=== PATIENT | male | born 1970 | race Caucasian/White ===

== ENCOUNTER → 2016-11-30 | Outpatient (CLI) | payer OTHER, BC | LOC: ULTRA 11:05 | DX: M79.605 Pain in left leg (principal); M79.89 Other specified soft tissue disorders ==

== ENCOUNTER → 2017-03-05 | Outpatient (CLI) | payer OTHER, BC | LOC: RAD 14:22 | DX: J18.9 Pneumonia, unspecified organism (principal) ==

== ENCOUNTER → 2017-05-23 | Outpatient (CLI) | payer OTHER, BC | LOC: RAD 11:18 | DX: R05 Cough (principal); R91.8 Other nonspecific abnormal finding of lung field; J18.9 Pneumonia, unspecified organism ==

== ENCOUNTER 2019-01-28 20:58 | Inpatient (IN) | payer OTHER, BC ==
[~2019-01-28] VITALS: Ht 170.2 cm; Wt 68.0 kg
[2019-01-28 19:30] VITALS: BP 126/82
[2019-01-28] MEDS ORDERED: HYDROXYZINE HCL10 M1 PO (23:17)
[2019-01-28] MEDS ORDERED: TRAZODONE HCL100 MG PO (23:18)
[2019-01-28] MEDS ORDERED: RISPERIDONE 1 MG1 MG PO (23:20)
[2019-01-28] MEDS ORDERED: ZANAFLEX4 MG PO (23:21)
[2019-01-28] MEDS ORDERED: FEXOFENADINE H180 MG PO (23:22)
[2019-01-28] MEDS ORDERED: DIVALPROEX SOD500 M1 PO ×2 (23:23→23:26)
[2019-01-28] MEDS ORDERED: ALLOPURINOL 10100 M1 PO (23:26)
[2019-01-28] MEDS ORDERED: TRIMETHOPRIM /P10 M1 OPHTHALMIC (23:29)
--- NOTE | 2019-01-29 00:34 | NUR ---
Pt admitted from 's office approx 1914,accompanied by mom/dad via WC.Parents reported he was doing fine when they last had him at their house Sunday evening but apparently pt was unable to get OOB Sunday morning d/t back pain. Pt is A/OX3-4,autistic and will occasionally clap alone and grind teeth. VSS.C/o pain ro right hip with movement. 's called with admission orders and implemented. IV started with 2 attempts on LFA. Pt is continent of B&B per dad. Fall precautions implemeted. Resting quietly at this time,will continue to monitor pt. Takes meds whole in applesauce/pudding and is a pureed diet.
[2019-01-29 04:13] VITALS: BP 133/92
[2019-01-29 07:19] VITALS: BP 114/74
--- NOTE | 2019-01-29 12:31 | NUR ---
Assumed care of pt at 0700. Pt has Down Syndrome. Follows commands. C/o pain in right hip. Pain medication administered. Family at bedside. Per verbal order, it is ok to administer the pt's meds from [facility] this am. Fall precautions in place. Will continue to monitor.
--- NOTE | 2019-01-29 15:24 | NUR ---
Case opened to follow for dc planning. Tool And Die Machinist visited with the pt and his mother/legal guardian at bedside. The pt has a hx of downs and autisum. He has lived at [facility] for 20 years. He spends the weekends with his parents. The pt is able to verbalize in one -two word responsives but is distracted with pain. His mother provided his history and plof information. She reports that the detention provides his meals, manages his medications and structured supervision. He requires pureed diet d/t aspiration risk and a special cup for liquids. They provide some assist for toileting hygiene. His Mom believes he had an unwitnessed fall resulting in the fractures. He is normally able to transfer and gait independently without an assistive device. He does need sba with stairs due to joint pain from arthritis. Therapy evals PT/OT/ST in progress. Pt will likely need rehab for pain control, functional gait, transfers, adl's and safety. He may need to use an assistive device. Pt's mother is agreeable to [facility] or [facility] pending the are team recommendations. Referral called to [facility] and they will come visit later today. [facility] does have beds available and contract with his ins plan. They will eval. [facility] does not have any beds til Sunday/Sunday. SNF disussed, including [facility] and [facility] the pt's parents live in [place]. Pt's eyal is concerned about his care needs being met and negative expriences with other family in the past. Cm role introduced. Will await response from [facility].
[2019-01-29 16:26] VITALS: BP 112/57
[2019-01-29 19:24] VITALS: BP 117/90
[2019-01-30] VITALS (7 sets, daily range): BP systolic 117–130; BP diastolic 76–90
--- NOTE | 2019-01-30 03:04 | NUR ---
Assumed pt care at 1900. Pt is A/OX3,able to make needs known;dad in room with the pt. VSS.Continent of B&B,voiding per urinal. Medicated per EMAR with relief reported. Fall precautions in place,will continue to monitor pt.
--- NOTE | 2019-01-30 10:42 | NUR ---
dp sent referral to [facility], Germaine at [facility] received and said Lynn has already been out to do evaluation, they will submit for authorization.
--- NOTE | 2019-01-30 13:35 | NUR ---
dp sent hh referral to [facility]) ready for dc today. fax [phone]
--- NOTE | 2019-01-30 15:28 | NUR ---
CARE TEAM INDICATED THAT PT IS MEDICALLY STABLE TO DC HOME THIS DAY. PT'S FAMILY ARE TO TAKE PT TO THEIR HOME INSTEAD OF HIS CARE HOME OR [facility] THEY FEEL HE WILL DO BETTER IN FAMILIAR SETTING. CM ORDERED FWW THROUGH [facility]. CM SENT REFERRAL TO [facility] AND THEY INDICATED THEY CAN'T ACCEPT PT. CM HAD REFERRAL SENT TO [facility]. AWAITING RESPONSE. PT IT TO DC TO HIS PARENTS HOME THIS DAY. NO OTHER CM INTERVETNION INDICATED. CASE CLOSED.
--- NOTE | 2019-01-30 19:44 | NUR ---
PATIENT WAS SHAKING AT 1530 VS = 130/90 MANUAL HR = 80 16 RESP T= 97.8 O2 SAT 88- 91%. CALLED DR SALAZAR FOR CHEST X-RAY AT 19:48 CALLED CHEST X- RAY RESULTS TO DR SALAZAR RECIEVED ORDERS : ROCHEPIN 1 GM IV XS1 AND ZITHROMAX [address] SALAZAR WILL SEE PATIENT IN AM. PT IS RESTING COMFORTABLY.
--- NOTE | 2019-01-31 02:13 | NUR ---
ASSESSMENT COMPLETED.PT HAD TEMP OF 100.6,TYLENOL ADMINISTERED,EFFECTIVE.PT HAD IV PUT ON HIS L HAND,IV ABX ADMINISTERED ORDERED.DAD AT BEDSIDE.PT RESTING ON HIS BED AT THIS TIME.FALL PRECAUTIONS IN PLACE,CALL LIGHT WITHIN REACH.
[2019-01-31 05:10] VITALS: BP 110/65
[2019-01-31] MEDS ORDERED: AZITHROMYCIN 2250 MG PO (07:53)
[2019-01-31] MEDS ORDERED: CEFDINIR300 MG PO (07:53)
[2019-01-31 08:00] VITALS: BP 99/62
--- NOTE | 2019-01-31 10:16 | NUR ---
DISCHARGE PLANNING. PATIENT DISCHARGING TO HOME WITH MOTHER, HOME HEALTH SERVICES RECOMMENDED AT DISCHARGE. HOME HEALTH REFERRAL, DISCHARGE ORDERS/HOME HEALTH ORDERS AND DISCHARGE SUMMARY FAXED TO [facility]TAKE LIAISON. CALL RECEIVED FROM [facility], ACCEPTING OF PATIENT AT DISCHARGE. START OF SERVICE DATE SUNDAY. UNIT SW AWARE.
[2019-01-31 13:43] VITALS: BP 117/79
--- NOTE | 2019-01-31 13:54 | NUR ---
PT DIDN'T DC HOME YESTERDAY EVENING PHYSICAIN HELD DC DUE TO PT ASPITATING. ORDERS HAD BEEN SENT TO [facility] AND THEY HAVE CONTACTED PT'S MOTHER TO INITIATE VISITS. PT'S WALKER WAS DELIVERD BY [facility]. NO OTHER CM INTERVENTION INDICATED. PT IS TO DC HOME WITH FAMILY THIS DAY. CM TO FAX DC PAPERWORK TO PT'S ASSISTED WELL. NO OTHER CM INTERVENTION INDICATED. CASE CLOSED.
[2019-01-31 14:09] VITALS: BP 117/79
== END 2019-01-31 14:50 | disposition home health service (06) | DRG 551 ==
LOC: 4E 20:58 → ENTRNSPT 01-31 14:40 → EDTRNSPTSTS 01-31 14:44 → 4E 01-31 14:50
PROVIDERS: ADMIT Family Medicine
DX: S32.10XA Unspecified fracture of sacrum, initial encounter for closed fracture (principal); J69.0 Pneumonitis due to inhalation of food and vomit; S32.059A Unspecified fracture of fifth lumbar vertebra, initial encounter for closed fracture; S32.502A Unspecified fracture of left pubis, initial encounter for closed fracture; S32.501A Unspecified fracture of right pubis, initial encounter for closed fracture; M54.9 Dorsalgia, unspecified; Z88.8 Allergy status to other drugs, medicaments and biological substances; Z93.0 Tracheostomy status; Q90.9 Down syndrome, unspecified; W18.39XA Other fall on same level, initial encounter; Y93.89 Activity, other specified; Y92.89 Other specified places as the place of occurrence of the external cause; Y99.8 Other external cause status
CPT/HCPCS: 10783

== ENCOUNTER → 2019-01-28 | Outpatient (CLI) | payer OTHER, BC ==
[~2019-01-28] MED LIST: ALLOPURINOL 10100 M1 PO; AZITHROMYCIN 2250 MG PO; CEFDINIR300 MG PO; DIVALPROEX SOD500 M1 PO; FEXOFENADINE H180 MG PO; HYDROXYZINE HCL10 M1 PO; RISPERIDONE 1 MG1 MG PO; TRAZODONE HCL100 MG PO; TRIMETHOPRIM /P10 M1 OPHTHALMIC; ZANAFLEX4 MG PO
== END ==
LOC: CAT 11:44 → RAD 11:44
DX: S32.591A Other specified fracture of right pubis, initial encounter for closed fracture (principal); S73.001A Unspecified subluxation of right hip, initial encounter; M51.36 Other intervertebral disc degeneration, lumbar region; M46.06 Spinal enthesopathy, lumbar region; Q65.89 Other specified congenital deformities of hip; X58.XXXA Exposure to other specified factors, initial encounter; Y93.89 Activity, other specified; Y92.89 Other specified places as the place of occurrence of the external cause; Y99.8 Other external cause status

== ENCOUNTER → 2019-03-07 | Outpatient (CLI) | payer OTHER, BC | LOC: NUC 08:46 | DX: M81.0 Age-related osteoporosis without current pathological fracture (principal); S32.82XD Multiple fractures of pelvis without disruption of pelvic ring, subsequent encounter for fracture with routine healing; X58.XXXD Exposure to other specified factors, subsequent encounter ==

== ENCOUNTER → 2019-07-31 | Outpatient (CLI) | payer OTHER, BC | LOC: CAT 10:42 | DX: R91.1 Solitary pulmonary nodule (principal); J18.1 Lobar pneumonia, unspecified organism; J84.10 Pulmonary fibrosis, unspecified; M43.8X4 Other specified deforming dorsopathies, thoracic region; M41.84 Other forms of scoliosis, thoracic region; K46.9 Unspecified abdominal hernia without obstruction or gangrene; K76.89 Other specified diseases of liver; D71 Functional disorders of polymorphonuclear neutrophils ==

== ENCOUNTER 2019-09-18 21:20 | Inpatient (IN) | payer OTHER, BC ==
[~2019-09-18] VITALS: Ht 170.2 cm; Wt 65.8 kg
[2019-09-18 21:27] VITALS: BP 119/66
[2019-09-18] MEDS ORDERED: LEXAPRO20 MG PO (21:42)
[2019-09-18] MEDS ORDERED: LORAZEPAM 1 MG T1 MG PO (21:43)
[2019-09-18] MEDS ORDERED: PROTONIX40 M1 PO (21:44)
[2019-09-18] MEDS ORDERED: OLOPATADINE HC2.5 ML OPHTHALMIC (21:44)
[2019-09-18] MEDS ORDERED: FLORINEF ACETA0.1 MG PO (21:46)
[2019-09-18] MEDS ORDERED: PANTOPRAZOLE SO40 M1 PO (21:50)
[2019-09-18] MEDS ORDERED: HYDROXYZINE HCL10 M2 PO (21:50)
[2019-09-18] MEDS ORDERED: TIZANIDINE4 MG/1 TA1 PO (21:50)
[2019-09-18] MEDS ORDERED: ESCITALOPRAM OX20 MG PO (21:51)
[2019-09-18] MEDS ORDERED: ALENDRONATE SOD70 MG PO (21:51)
[2019-09-18 22:33] LABS: ABSOLUTE NEUTROPHILS 3.1 thou/uL (1.4-8.2); BASOPHILS 1.1 % (0.0-2.0); EOSINOPHILS 0.2 % (0.0-3.0); HEMATOCRIT 37.9 % (42.0-52.0); LYMPHOCYTES 17.9 % (24.0-44.0); MCH 35.8 pg (26.0-34.0); MCHC 34.2 g/dL (28.0-37.0); MCV 104.6 fL (80.0-100.0); MONOCYTES 6.5 % (1.0-8.0); PLATELET COUNT 140 thou/uL (150-400); POLYS 74.3 % (36.0-66.0); RBC 3.62 mil/uL (4.50-6.00); RDW 13.9 % (10.5-14.5); WBC 4.2 thou/uL (4.0-11.0)
[2019-09-18 22:43] LABS: ANION GAP 8 mmol/L (7-16); BUN 18 mg/dL (7-18); CALCIUM 8.4 mg/dL (8.5-10.1); CHLORIDE 101 mmol/L (98-107); CO2 27 mmol/L (21-32); CREATININE 0.9 mg/dL (0.7-1.3); GLUCOSE 96 mg/dL (74-106); POTASSIUM 3.9 mmol/L (3.5-5.1); SODIUM 136 mmol/L (136-145)
[2019-09-18 22:54] LABS: ALBUMIN 3.1 g/dL (3.4-5.0); LIPASE 62 U/L (73-393); SGOT 19 U/L (15-37); SGPT 16 U/L (30-65); TOTAL BILIRUBIN 0.7 mg/dL (<0.1-1.0); TOTAL PROTEIN 6.3 g/dL (6.4-8.2); TROPONIN-I <0.06 ng/mL (<0.06)
--- NOTE | 2019-09-18 23:30 | NUR ---
ATTEMPTED URINE SAMPLE. UNSUCCESSFUL AT THIS TIME. DR PENALOZA NOTIFIED. REPORT GIVEN TO CHRISTOPHER PUENTES
[2019-09-19 01:11] LABS: URINE BILIRUBIN NEGATIVE (Negative); URINE BLOOD NEGATIVE (Negative); URINE CLARITY CLEAR; URINE COLOR YELLOW; URINE GLUCOSE-RANDOM* NEGATIVE (Negative); URINE KETONES 1+ (Negative); URINE LEUKOCYTES-REFLEX NEGATIVE (Negative); URINE NITRITE-REFLEX NEGATIVE (Negative); URINE PROTEIN (DIPSTICK) NEGATIVE (Negative); URINE UROBILINOGEN 0.2 E.U./dl (0.2-1.0)
[2019-09-19 03:45] VITALS: BP 112/80
[2019-09-19 05:49] VITALS: BP 116/68
--- NOTE | 2019-09-19 05:50 | NUR ---
TALKED WITH DR SALAZAR PER [facility] REQUEST. INFORMED OF CONDITION, CONTINUED PAIN, HE AGREES WITH ADMISSION AND REQUESTS PT BE PLACED IN INPATIENT BED PER CNO AND WITH DR SALAZAR REQUEST, A PARENT MAY REMAIN AT BEDSIDE WITH PT. MOTHER DECLINED ADMINISTRATION OF AN NARCOTICS DUE TO PAST RESPONSE TO HYDROCODONE- EXTREME REACTION, ANXIETY, WHICH WAS PROLONGED. ALSO DECLINES THE USE OF FENTANYL.
[2019-09-19 06:27] VITALS: BP 140/74
[2019-09-19 07:25] VITALS: BP 101/74
--- NOTE | 2019-09-19 07:36 | NUR ---
PT ARRIVED THIS AM FROM ER @0620 WITH MOM AT BEDSIDE. ORIENTED TO ROOM, WELCOME PACKAGE GIVEN AND VITALS CHECKED. REPORT GIVEN TO DAY NURSE TO CONT CARE.
--- NOTE | 2019-09-19 08:28 | EKG ---
[facility] [place] [address] [address] [place] [address] ELECTROCARDIOGRAM REPORT Name: LEE ANN ESPARZA Room #: 433-I ADM IN M.R.#: [id number] Admission: 09/19/19 Attend Phys: Obi Damico MD Discharge: Date of : 74 Report #: [id number] THIS REPORT FOR: cc: Andrew Mar MD, Neal A. MD Lundgren,José Lawson MD [facility] ~ THIS REPORT FOR: //name// [facility] ED Test Date: 2019-09-18 Test Time: 22:27:28 Pat Name: LEE ANN ESPARZA Department: Room: [facility] Gender: M Direct Marketing Manager: chary : 1970 Requested By: Hayden Carter Order Number: [id number] MD: José Ledesma Measurements Intervals [place] Rate: 81 P: 77 GA: 174 QRS: 83 QRSD: 94 T: 31 QT: 399 QTc: 464 Interpretive Statements Sinus rhythm No significant abnormality No previous ECG available for comparison Electronically Signed On 09-19-2019 8:26:41 CDT by José Ledesma [email or web address] <ELECTRONICALLY SIGNED> By: José Ledesma MD, FACC 09/19/19 0826 26 José Ledesma MD, [facility] /EPI
--- NOTE | 2019-09-19 14:11 | NUR ---
PT ADMITTED RELATED TO ABD PAIN, NAUSEA, DRY HEAVES. CM REVIEWED CHART AND SPOKE WITH CARE TEAM. CM CALLED AND SPOKE WITH PT'S MOTHER/GUARDIAN THIS DAY AND SHE INDICATED THAT PT RESIDES IN [facility]. SHE INDICATED THERE ARE NO STEPS TO ENTER AND NONE INSIDE. SHE INDICATED THAT PT USES A FWW UPON WAKEING DUE TO LOW BP ISSUSES. SHE INDICATED THAT PT HAD USED [facility] IN THE PAST AND THAT THYE WOULD USE THEM AGAIN UPON DC IF NEEDED. MOTHER TO PROVIDE TRASNPORT BACK TO [facility] ONCE MEDICALLY STABLE. DR. SALAZAR INDICATED THAT PT WILL LIKELY BE MEDICALLY STABLE TO RETURN TO [facility] WITH NO NEEDS OVER THE WEEKEND. CM FOLLOWING SHOULD ANY DC NEEDS ARISE. CM OFFERED TO FAX CLINICAL UPDATES TO [facility] BUT MOTHER INIDCATED THAT ISN'T NEEDED AND THAT SHE IS IN COMMUNICATION WITH THE DIRECTOR.
[2019-09-19 15:34] VITALS: BP 124/78
--- NOTE | 2019-09-19 18:20 | NUR ---
AT APPROX 0800 BLADDER SCANNED PATIENT, WAS 600 CC. WITH ASSIST OF PATIENT'S MOM ANOTHER MALE RN AND THIS NURSE PLACED MANZO CATH, RETURN OF CLEAR YELLOW URINE. 1000 CC. PT DID NOT TOLERATE PROCEDURE WELL PROCEDURE WAS EXPLAINED BUT PATIENT WAS SCARED OF UNKNOWN AND IS VERY STRONG.LATER IN DAY MANZO BAG SHOWS BLOOD TINGED URINE. FLUIDS INFUSING AND PT IS DRINKING WELL DAD AT BEDSIDE. MOM TO SPEND NIGHT. PT ATE PUREED DIET HAS GOOD APPETITE. DR SALAZAR HERE TO SEE PATIENT. HOSPITALIST HERE 09/20/19 AND WELL DC BACK TO CARE HOME IF INDICATED.
[2019-09-19 19:15] VITALS: BP 153/70
--- NOTE | 2019-09-20 01:01 | NUR ---
ASSUMED PT CARE AT 1900. MOTHER IN ROOM - APPROVED BY PUBLIC TRANSIT SPECIALIST. UP TO COMMODE, PT IS STEADY ON FEET AND NO FALL RISK BUT DOES NEED SOME PROMPTS IN ORDER TO GET UP. NO BM TONIGHT. FLUIDS INFUSING PER ORDER. URINE IN MANZO CATHETER BLOOD TINGED BUT STARTED TO NORMALIZE THROUGHOUT SHIFT WITH GOOD OUTPUT. POSSIBLE DISCHARGE TODAY. PT CURRENTLY ASLEEP IN BED WITH MOTHER AT BEDSIDE.
[2019-09-20 08:30] VITALS: BP 114/63
[2019-09-20 11:20] LABS: ABSOLUTE NEUTROPHILS 4.5 thou/uL (1.4-8.2); BASOPHILS 0.6 % (0.0-2.0); EOSINOPHILS 1.1 % (0.0-3.0); HEMATOCRIT 36.7 % (42.0-52.0); HEMOGLOBIN 12.6 gm/dL (14.0-18.0); LYMPHOCYTES 12.2 % (24.0-44.0); MCH 36.1 pg (26.0-34.0); MCHC 34.2 g/dL (28.0-37.0); MCV 105.3 fL (80.0-100.0); MONOCYTES 10.4 % (1.0-8.0); PLATELET COUNT 114 thou/uL (150-400); POLYS 75.7 % (36.0-66.0); RBC 3.48 mil/uL (4.50-6.00); RDW 14.2 % (10.5-14.5)
[2019-09-20 11:34] LABS: ALBUMIN 2.4 g/dL (3.4-5.0); ANION GAP < 0 mmol/L (7-16); BUN 11 mg/dL (7-18); CALCIUM 7.6 mg/dL (8.5-10.1); CHLORIDE 104 mmol/L (98-107); CO2 30 mmol/L (21-32); CREATININE 0.9 mg/dL (0.7-1.3); GLUCOSE 80 mg/dL (74-106); MAGNESIUM 1.9 mg/dL (1.8-2.4); PHOSPHORUS 2.3 mg/dL (2.5-4.9); POTASSIUM 3.7 mmol/L (3.5-5.1); SGOT 23 U/L (15-37); SGPT 17 U/L (30-65); SODIUM 133 mmol/L (136-145); TOTAL BILIRUBIN 0.3 mg/dL (<0.1-1.0); TOTAL PROTEIN 5.3 g/dL (6.4-8.2)
[2019-09-20 12:01] LABS: TSH 1.21 uIU/mL (0.358-3.740)
[2019-09-20 15:51] VITALS: BP 128/73
--- NOTE | 2019-09-20 16:56 | NUR ---
PT ASSESSED AT START OF SHIFT. URINE IN MANZO BLOOD TINGED THIS AM BUT CLEARED UP THIS AFTERNOON TO WATERMELON COLOR W/O CLOTS. HAD MODERATE VERY CONSTIPATED STOOL THIS AM. DR. ENGLE IN TO SEE PT AND TALKED W/ FATHER. KUB DONE SHOWING MODERATE STOOL. PT DRINKING 1 LITER GOLYTELY THIS AFTERNOON TO CLEAR OUT BOWELS FOR POSSIBLE DISCONTINUING OF MANZO TOMORROW FOR DISCHARGE. TYLENOL GIVEN FOR ABD PAIN.
[2019-09-20 21:15] VITALS: BP 134/76
--- NOTE | 2019-09-21 02:19 | NUR ---
PT TRANSFERRING TO BEDSIDE COMMODE WITH ASSIST AND IS TOLERATING FAIR. TYLENOL PROVIDING PAIN RELIEF. MOTHER AT BEDSIDE. FREQUENT OBSERVATION.
[2019-09-21 03:45] VITALS: BP 135/89
[2019-09-21 05:34] LABS: ABSOLUTE NEUTROPHILS 4.5 thou/uL (1.4-8.2); BASOPHILS 0.7 % (0.0-2.0); HEMATOCRIT 38.8 % (42.0-52.0); LYMPHOCYTES 15.6 % (24.0-44.0); MCH 35.5 pg (26.0-34.0); MCHC 33.5 g/dL (28.0-37.0); MCV 106.1 fL (80.0-100.0); PLATELET COUNT 109 thou/uL (150-400); POLYS 71.7 % (36.0-66.0); RBC 3.66 mil/uL (4.50-6.00); RDW 13.8 % (10.5-14.5); WBC 6.3 thou/uL (4.0-11.0)
[2019-09-21 05:58] LABS: CALCIUM 8.4 mg/dL (8.5-10.1); CREATININE 0.8 mg/dL (0.7-1.3); POTASSIUM 3.7 mmol/L (3.5-5.1)
[2019-09-21 07:47] VITALS: BP 134/77
--- NOTE | 2019-09-21 15:08 | NUR ---
PT ASSESSED AT START OF SHIFT. MANZO AND IV FLUIDS DC'D THIS AM PER ORDERS. POST VOID RESIDUALS BEING CHECKED TWICE FOR POSSIBLE DISCHARGE LATER TODAY. PT VOIDING LARGE AMTS. CLEAR AND PINK TINGED. STOOL VERY SOFT NOW. EATING AND DRINKING WELL. AMBULATED THE HALLS W/ FATHER USING WALKER AND DOES WELL. DENIES ANY ABD DISCOMFORT.
[2019-09-21 15:55] VITALS: BP 129/71
[2019-09-21] MEDS ORDERED: FLOMAX0.4 MG PO (17:03)
[2019-09-21] MEDS ORDERED: B12INJ IM (17:07)
[2019-09-21] MEDS ORDERED: FOLIC ACID1 MG PO (17:08)
[2019-09-21 18:12] VITALS: BP 129/71
--- NOTE | 2019-09-22 08:57 | EKG ---
[facility] [place] [address] ELECTROCARDIOGRAM REPORT Name: LEE ANN ESPARZA Room #: 433- DIS IN M.R.#: [id number] Admission: 09/19/19 Attend Phys: Andrew Mar MD Discharge: 09/21/19 Date of : 74 Report #: [id number] THIS REPORT FOR: cc: Andrew Mar MD, Neal A. MD Couchonnal, Luis F. MD ~ THIS REPORT FOR: //name// [facility] Test Date: 2019-09-20 Test Time: 11:56:18 Pat Name: LEE ANN ESPARZA Department: Room: [facility] Gender: M Home Health Administrator: Atul HUGGINS : 1970 Requested By: Juanita Montilla Order Number: [id number] MD: Lance Bedoya Measurements Intervals [place] Rate: 51 P: -4 VA: 159 QRS: 78 QRSD: 96 T: 27 QT: 412 QTc: 380 Interpretive Statements Sinus rhythm Compared to ECG 09/18/2019 22:27:28 No significant changes Electronically Signed On 09-22-2019 8:55:26 CDT by Lance Bedoya [email or web address] <ELECTRONICALLY SIGNED> By: Lance Bedoya MD 09/22/19 0855 [id number] [id number] Lance Bedoya MD /EPI
== END 2019-09-21 18:54 | disposition home health service (06) | DRG 312 ==
LOC: ER 21:20 → 4S 09-19 03:41 → EROBS 09-19 03:41 → 4S 09-19 06:02
PROVIDERS: Emergency Medicine; Internal Medicine; ADMIT Family Medicine
DX: I95.1 Orthostatic hypotension (principal); K59.00 Constipation, unspecified; M81.0 Age-related osteoporosis without current pathological fracture; K21.9 Gastro-esophageal reflux disease without esophagitis; R33.9 Retention of urine, unspecified; E53.8 Deficiency of other specified B group vitamins; E83.39 Other disorders of phosphorus metabolism; N32.89 Other specified disorders of bladder; Z88.1 Allergy status to other antibiotic agents; Z88.5 Allergy status to narcotic agent; Q90.9 Down syndrome, unspecified
CPT/HCPCS: 10195

== ENCOUNTER 2020-11-16 13:01 | Observation (INO) | payer OTHER, BC ==
[~2020-11-16] VITALS: Ht 170.2 cm; Wt 63.5 kg
[~2020-11-16 13:01] MED LIST changes: +ALENDRONATE SOD70 MG PO; +ALLOPURINOL 10100 M3 PO; +B12INJ IM; +COLACE100 MG PO; +CORTIZONE-1028 GM TOP; +DEPAKOTE ER500 M1 PO; +DESYREL150 MG PO; +ENSURE ACTIVE296 ML PO; +ESCITALOPRAM OX20 MG PO; +FLOMAX0.4 MG PO; +FLORINEF ACETA0.1 MG PO; +FOLIC ACID1 MG PO; +HYDROXYZINE HCL10 M2 PO; +IRON325 PO; +LEXAPRO20 MG PO; +LORAZEPAM 1 MG T1 MG PO; +LOXAPINE10 MG PO; +MELATONIN10 M3 PO; +MIRALAX17 G1 PO; +MUCINEX1200 MG PO; +OLOPATADINE HC2.5 ML OPHTHALMIC; +PROTONIX40 M1 PO; +PROTONIX40 M2 PO; +SENNA PLUS TAB1 EACH PO; +TIZANIDINE4 MG/1 TA1 PO; +TRAMADOL 50 MG50 MG PO; +TYLENOL EXTRA500 MG PO
[2020-11-16 14:47] VITALS: BP 113/71
[2020-11-16 19:17] LABS: HEMATOCRIT 34.2 % (42.0-52.0); HEMOGLOBIN 11.4 gm/dL (14.0-18.0)
[2020-11-17 00:07] VITALS: BP 125/73
--- NOTE | 2020-11-17 00:48 | NUR ---
ADMITTED FROM THE UNIT AT APPROXIMATELY 1930. PT IS AWAKE AND ALERT. IS CAPABLE OF GIVING ONE WORD ANSWERS BUT HAS CHOSEN TO ONLY USE WORDS WITH MOTHER AND FATHER. HE IS ON 2 LITERS OF O2 NC. BP ELEVATED INITIALLY BUT UPON RECHECK WAS WITHIN NORMAL LIMITS. AFEBRILE. POLAR PACK TO RIGHT ARM IS NOT WORKING PROPERLY SO PLACED ICE PACKS X2 ON ARM FOR COMFORT. DRSG IS C/D/I. PT SHOWED SIGNS OF PAIN AND WAS GIVEN PAIN MEDICATION DIRECTED. PRN SLEEP MEDICATION GIVEN DIRECTED. DIFFICULTY VOIDING SINCE PROCEDURE. NO BM THIS SHIFT. ADVANCING DIET SLOWLY. HAS HAD APPLE SAUCE AND YOGURT. TOLERATED WELL. MOTHER IS AT BEDSIDE FOR THE NIGHT. HOUSE SUPERVISER NOTIFIED. FALL PRECAUTIONS IN PLACE, CALL LIGHT IS WITHIN REACH.
[2020-11-17 06:02] LABS: HEMATOCRIT 27.9 % (42.0-52.0); HEMOGLOBIN 9.5 gm/dL (14.0-18.0); MCH 37.4 pg (26.0-34.0); MCHC 34.1 g/dL (28.0-37.0); MCV 109.6 fL (80.0-100.0); RBC 2.54 mil/uL (4.50-6.00); RDW 14.4 % (10.5-14.5); WBC 8.3 thou/uL (4.0-11.0)
[2020-11-17 06:15] LABS: CALCIUM 7.9 mg/dL (8.5-10.1); POTASSIUM 4.3 mmol/L (3.5-5.1)
--- NOTE | 2020-11-17 07:17 | O ---
[facility] [place] [address] [place] [address] OPERATIVE REPORT Name: LEE ANN ESPARZA Room #: 446-P [facility]..#: [id number] Admission: 11/16/20 Attend Phys: Rogelio Solis MD Discharge: Date of : 74 Report #: [id number] THIS REPORT FOR: cc: Andrew Mar MD, Neal A. MD McCabe,Rogelio Mills MD ~ DOC #: [id number] Rogelio Solis MD DATE OF SERVICE: 11/16/2020 SERVICE: Orthopedics. FACILITY: [place]. SURGEON: Rogelio Solis MD LICENSED WEIGHER: Teena Arguelles NP INDICATIONS FOR LICENSED WEIGHER: Assistance with exposure, retraction, provisional fixation and closure. PREOPERATIVE DIAGNOSIS: Displaced right humeral shaft fracture. POSTOPERATIVE DIAGNOSIS: Displaced right humeral shaft fracture. PROCEDURE: Open reduction and internal fixation of right humeral shaft fracture. COMPLICATIONS: None. DRAINS: None. SPECIMENS: None. ESTIMATED BLOOD LOSS: 650 mL IMPLANTS: 1. Synthes 8-hole large fragment LCDC plate. 2. Arthrex fiber cerclage for provisional reduction. INDICATIONS: The patient is a 50-year-old gentleman who fell and sustained a right humeral fracture. He presented to his primary care physician who obtained an x-ray which showed the fracture. He presented to our clinic with a referral. We tried attempted conservative measures, but he displaced his fracture and he was indicated for surgical treatment. Risks, benefits, alternatives and indications were reviewed with the family who are his guardians as the patient [facility] [address] [place] [address] OPERATIVE REPORT Name: LEE ANN ESPARZA Room #: 446-P [facility] M.R.#: [id number] Admission: 11/16/20 Attend Phys: Rogelio Solis MD Discharge: Date of : 74 Report #: [id number] has Down syndrome. They gave full informed consent and wished to move forward with surgery. Risks include but not limited to pain, bleeding, infection, injury to nerves or blood vessels including radial nerve, malunion, nonunion, need for further surgery as well as complications related to anesthesia. Despite the risks, he wished to proceed. DESCRIPTION OF PROCEDURE: After right upper extremity was correctly identified in the preoperative holding area as the operative extremity, the patient was taken to the operating room where general anesthesia was induced without complications. Padded appropriately. Prophylactic antibiotics were administered in appropriate time. Right upper extremity was then prepped and draped in standard sterile fashion. Timeout procedure performed. No tourniquet was used for the procedure due to the position of the fracture. An anterolateral approach to the humerus was made. Skin incision was made. Hemostasis was achieved as the significant cutaneous and deep venous bleeders were encountered and the exposure. The dissection was taken down through the inner muscular plane from the distal portion of the deltopectoral exposure and then the biceps was mobilized laterally. The cutaneous nerves were protected. The radial nerve was visualized penetrating the septum and then extending distally between the brachialis and brachioradialis. The brachioradialis was protected in the exposure, although a portion did require a dissection from the humerus. Once the humeral fracture was visualized, it was exposed and then debrided of the hematoma and some early callus that had formed around the fracture itself. The bone was irrigated and then we performed a provisional reduction and obtained anatomic reduction. Based on history of osteoporosis, I was concerned about the potential for the fracture to break apart if we use interfragmentary compression, if the plate did not have an anatomic fit, and inspection of the humerus indicated that the plate would likely not fit anatomically because of the position of the deltoid tuberosity as well as the lateral flare and a suggestion that there may have been some previous fracture in the distal humerus. I therefore did subperiosteal dissection around the humerus and then passed the Arthrex fiber cerclage passer around the bone, ensuring that it was deep to any vital structures and strictly against the bone and then we used the cerclage in the typical technique and we were able to obtain good compression across the fracture in an anatomic reduction and then used the plate essentially in a neutralization mode. The subperiosteal exposure was continued proximally and distally in order to provide appropriate position for the plate, an 8-hole plate was selected, ultimately required contouring on the plate bending iron in order to position the plate appropriately and then the plate was held in provisional fixation with pins proximally and distally, and checked x-ray to confirm appropriate plate position and then proceeded with fixation proximally. He had excellent cortical purchase with cortical screws. We utilized 6 cortical fixation proximally with nonlocking screws, obtaining better than two finger tightness with the 3 nonlocking screws. Distally, I applied initially with 2 nonlocking screws and obtained very good fixation and [address] [address] OPERATIVE REPORT Name: LEE ANN ESPARZA Room #: 446-P [facility] M.R.#: [id number] Admission: 11/16/20 Attend Phys: Rogelio Solis MD Discharge: Date of : 74 Report #: [id number] then placed a bicortical locking screw distally and felt that the fourth screw on the distal side of the fracture was viable and then placed this with the bicortical fixation as well and again obtained good bony purchase. Final x-rays were taken. The wound was then copiously irrigated and the muscle was reduced over a gram of vancomycin powder and then the deep layer was closed with 0 Vicryl suture. Skin was closed with 2-0 Vicryl followed by tara. A sterile dressing was applied. The patient was placed in a sling, awakened from anesthesia and taken to recovery room in stable condition. No complications. All counts were recorded as correct. Rogelio Solis MD MPM/CURTIS <ELECTRONICALLY SIGNED> By: Rogelio Solis MD 11/17/20 0717 1812 185 Rogelio Solis MD /nt
[2020-11-17 07:59] VITALS: BP 117/60
[2020-11-17 09:17] VITALS: BP 117/60
[2020-11-17 09:18] VITALS: BP 117/60
--- NOTE | 2020-11-17 09:22 | NUR ---
ASSESSMENT: CM REVIEWED CHART AND SPOKE WITH PT AND HIS MOTHER/GUARDIAN LINDSAY AT THE BEDSIDE. PT IS FROM [facility] WHERE IS HAS 1:1 STAFF. PT IS S/P ORIF RIGHT HUMERAL FX. PT HAS NO STEPS TO ENTER THE CARE HOME OR THAT HE HAS TO USE INSIDE. PT HAS A WHEELCHAIR HE CAN USE WELL A WALKER. PTS MOTHER REPORTS SOMETIMES HE STAYS AT THEIR HOME ALSO BUT SHE PLANS ON HIM RETURNING TO THE CARE HOME AT TIME OF DISCHARGE. CM SPOKE WITH CARE HOME DIRECTOR DWAIN RICHARDSON [phone] TO UPDATE AND THEY CAN ACCEPT HIM BACK TODAY. CM FAXED PAPERWORK TO HER PER HER AND HIS MOTHERS REQUEST TO FAX [phone]. PTS MOTHER REPORTS PT HAS HAD [facility] IN THE PAST AND THEY PREFER TO USE THEM AGAIN. CM FAXED REFERRAL TO [facility] DIS[facility] PAPERWORK AND NOTIFIED HH TO CONTACT BOTH DWAIN DIRECTOR AT THE GROUP WELL PTS MOTHER WITH THE TIME THEY CAN COME SEE PATIENT. PTS MOTHER PLANS ON PROVIDING TRANSPORTATION BACK TO THE CARE HOME TODAY.
--- NOTE | 2020-11-17 09:40 | NUR ---
ASSUMED PT CARE THIS AM. PT IS ALERT & AWAKE. PT HAS IV SITE ON L HAND RUNNING NS @100ML/HR. PT IS UP WITH ASSIST X1 WITH GAITBELT AND WALKER. PT MOM WAS AT THE BEDSIDE. CALLED PACU TO SENT A [facility]. PT IS ON 2L NC O2. pT HAS RUE SLING, [facility] BILATERAL KNEE HIGH AND SCD. PT TOLERATED MEDICATION AND DIET WELL. NO C/O OF VOMITING AND NAUSEA THIS AM. PT ON THE BED WATCHING TV, BED ON THE LOWEST POSITION, SIDE RAILS UP, CALL LIGHT WITHIN REACH. WILL CONTINUE TO MONITOR PT. FOLLOW POC.
== END 2020-11-17 14:01 | disposition home or self-care (01) ==
LOC: OR 13:01 → TBA 13:08 → OR 14:55 → 4S 20:14 → OR 20:15 → 4S 20:15
PROVIDERS: Student in an Organized Health Care Education/Training Program; ADMIT Orthopaedic Surgery Sports Medicine; ATTEND Orthopaedic Surgery Sports Medicine
DX: S42.301A Unspecified fracture of shaft of humerus, right arm, initial encounter for closed fracture (principal); M81.0 Age-related osteoporosis without current pathological fracture; Q90.9 Down syndrome, unspecified; E53.8 Deficiency of other specified B group vitamins; Z79.899 Other long term (current) drug therapy; W19.XXXA Unspecified fall, initial encounter; Y93.89 Activity, other specified; Y92.89 Other specified places as the place of occurrence of the external cause
CPT/HCPCS: 50010; 50101; 50386; 50403; 50908; 51132; 51320; 51412; 52001; 56524; 56528; 56667; 57978; 57979; 58858; 62110; 62900; 70005